=== PATIENT | female | born 1970 | race Two or more races ===

== ENCOUNTER 2023-03-31 10:36 | Inpatient (IN) | payer OTHER ==
[~2023-03-31] VITALS: Ht 160 cm; Wt 72.6 kg
[2023-04-03] MEDS ORDERED: ZOCOR20 MG PO (14:02)
[2023-04-03] MEDS ORDERED: COZAAR100 MG PO (14:02)
[2023-04-09] MEDS ORDERED: HYOSCYAMINE0.125 M1 SL (11:47)
[2023-04-09] MEDS ORDERED: PEPCID AC20 MG PO (11:48)
[2023-04-09] MEDS ORDERED: TRAM1TAB98 PO (11:48)
== END 2023-04-09 12:21 | disposition home or self-care (01) | DRG 330 ==
LOC: ADM 04-03 10:30 → EDSTATUS 04-03 10:30 → O/R 04-06 07:05 → SURG 04-06 10:30 → SURH 04-06 17:52
PROVIDERS: Obstetrics & Gynecology Gynecologic Oncology; ADMIT Surgery; ATTEND Surgery
PROC: 0DBW4ZZ Excision of Peritoneum, Percutaneous Endoscopic Approach (ICD-10-PCS; 2023-04-06)
PROC: 0DBF4ZZ Excision of Right Large Intestine, Percutaneous Endoscopic Approach (ICD-10-PCS; principal; 2023-04-06 15:15)
PROC: 07BC4ZX Excision of Pelvis Lymphatic, Percutaneous Endoscopic Approach, Diagnostic (ICD-10-PCS; 2023-04-06 15:15)
DX: C18.1 Malignant neoplasm of appendix (principal); C18.6 Malignant neoplasm of descending colon; R93.5 Abnormal findings on diagnostic imaging of other abdominal regions, including retroperitoneum

== ENCOUNTER 2023-04-03 11:32 | Outpatient (CLI) | payer OTHER ==
[2023-04-03] MEDS ORDERED: ZOCOR20 MG PO (14:02)
[2023-04-03] MEDS ORDERED: COZAAR100 MG PO (14:02)
== END 2023-04-03 11:37 | disposition home or self-care (01) ==
LOC: LAB 11:32
PROVIDERS: ATTEND Urology
DX: N30.00 Acute cystitis without hematuria (principal)